=== PATIENT | female | born 1995 | race Caucasian/White ===

== ENCOUNTER 2019-09-11 17:48 | Emergency (ER) | payer OTHER, MEDICAID ==
[~2019-09-11] VITALS: Ht 180.3 cm; Wt 173.7 kg
[2019-09-11 18:15] VITALS: BP 124/89
== END 2019-09-11 20:52 | disposition left against medical advice (07) ==
LOC: ER 17:48
DX: N89.8 Other specified noninflammatory disorders of vagina (principal); Z53.21 Procedure and treatment not carried out due to patient leaving prior to being seen by health care provider

== ENCOUNTER 2020-08-01 01:36 | Emergency (ER) | payer OTHER, MEDICAID ==
[~2020-08-01] VITALS: Ht 177.8 cm; Wt 169.2 kg
[2020-08-01 02:09] VITALS: BP 145/88
== END 2020-08-01 03:34 | disposition home or self-care (01) ==
LOC: ER 01:37
DX: N89.8 Other specified noninflammatory disorders of vagina (principal); Z20.2 Contact with and (suspected) exposure to infections with a predominantly sexual mode of transmission; Z53.21 Procedure and treatment not carried out due to patient leaving prior to being seen by health care provider